=== PATIENT | male | born 1980 | race Two or more races ===

== ENCOUNTER → 2023-05-09 | Emergency (ER) | payer OTHER ==
[~2023-05-09] VITALS: Ht 180.3 cm; Wt 93.9 kg
[~2023-05-09] MED LIST: GABAPENTIN800 M1 PO
== END | disposition left against medical advice (07) ==
LOC: ER 04:24
DX: Z53.21 Procedure and treatment not carried out due to patient leaving prior to being seen by health care provider (principal)